=== PATIENT | female | born 1980 | race Caucasian/White ===

== ENCOUNTER 2018-07-15 10:21 | Outpatient (CLI) | payer OTHER | END 2018-07-15 10:22 | disposition critical access hospital (66) | LOC: EMS 10:21 | PROVIDERS: ATTEND Surgery | DX: R42 Dizziness and giddiness (principal); R11.0 Nausea; M54.2 Cervicalgia | CPT/HCPCS: A0425; A0429 ==

== ENCOUNTER 2018-07-15 10:42 | Emergency (ER) | payer OTHER ==
--- NOTE | 2018-07-15 12:18 | ED Physician Documentation ---
PD HPI SYNCOPE - Stated complaint Stated Complaint: NEAR SYNCOPE - Chief complaint Chief Complaint: Back Pain - History obtained from History obtained from: Patient - History of Present Illness Witnessed: Witnessed Timing - onset: Yesterday (had some feeling of muscle pain and tightness last evening and worse with awakening this morning. Pain right medial scapular area. It worsened with reaching for her daughter and lifting her up. With the pain worse, she felt lightheaded, then got nauseated and vomited once. She feels that she almost fainted, with general weakness. This lasted minute or two, and then started recovering. But still with scapular area pain, sharp and movement related.) Duration: Minutes Preceding symptoms: Chest pain, Generalized weakness, Other. No: Vision changes , Dyspnea, Abdominal pain Associated symptoms: No: Seizure Review of Systems Constitutional: denies: Fever, Chills, Myalgias Nose: denies: Rhinorrhea / runny nose, Congestion Throat: denies: Sore throat Cardiac: reports: Chest pain / pressure. denies: Palpitations, Pedal edema, Calf pain Respiratory: denies: Dyspnea, Cough GI: reports: Abdominal Pain, Nausea. denies: Vomiting, Diarrhea : denies: Dysuria, Frequency Skin: denies: Rash, Lesions Musculoskeletal: reports: Back pain, Other (recent travel by plane last week without leg problems.). denies: Neck pain, Extremity swelling Neurologic: reports: Focal weakness, Near syncope. denies: Generalized weakness , Numbness, Altered mental status, Headache Endocrine: denies: Weight loss, Swollen lymph nodes Immunocompromised: denies: Immunocompromised PD PAST MEDICAL HISTORY - Past Medical History Past Medical History: No Cardiovascular: None Respiratory: None Neuro: None - Past Surgical History Past Surgical History: No - Present Medications Home Medications: Ambulatory Orders Medication Instructions Recorded Confirmed HYDROcod/ACETAM 5/325 [[place] 5/325] 1 tab PO Q6H PRN #15 tablet 07/15/18 Methocarbamol [Robaxin] 500 mg PO Q6H PRN #25 tablet 07/15/18 Ondansetron Odt [Zofran] 4 mg TL Q6H PRN #15 tablet 07/15/18 - Allergies Allergies/Adverse Reactions: Allergies Allergy/AdvReac Type Severity Reaction Status Date / Time No Known Drug Allergies Allergy Verified 07/15/18 10:53 - Living Situation Living Situation: reports: With spouse/s.o. Living Arrangement: reports: At home - Social History Does the pt smoke?: No Smoking Status: Never smoker Does the pt drink ETOH?: No - Family History Family history: denies: Aortic aneursym, Aortic dissection - Immunizations Immunizations are current?: Yes - POLST Patient has POLST: No PD ED PE NORMAL - Vitals Vital signs reviewed: Yes - General General: Alert and oriented X 3, No acute distress, Well developed/nourished - HEENT HEENT: Atraumatic, Ears normal, Pharynx benign. No: Moist mucous membranes - Neck Neck: Supple, no meningeal sign, No adenopathy - Cardiac Cardiac: RRR, No murmur - Respiratory Respiratory: No respiratory distress, Clear bilaterally - Abdomen Abdomen: Normal bowel sounds, Soft, Non tender - Female Female : Pt declined - Rectal Rectal: Deferred - Back Back: No CVA TTP, No spinal TTP, Other (muscular tenderness without redness, sores, rash at medial scapular area on right. ) - Derm Derm: Normal color, Warm and dry - Extremities Extremities: No deformity, No tenderness to palpate, Normal ROM s pain, No edema , No calf tenderness / cord - Neuro Neuro: Alert and oriented X 3, No motor deficit, Normal speech Eye Opening: Spontaneous Motor: Obeys Commands Verbal: Oriented GCS Score: 15 Results - Vitals Vitals: Vital Signs - 24 hr 07/15/18 07/15/18 07/15/18 10:49 12:21 14:45 Temperature 97.7 C H Heart Rate 67 68 69 Respiratory 20 16 16 Rate Blood Pressure 105/68 100/62 104/67 O2 Saturation 100 100 97 Oxygen O2 Source Room air - EKG (time done) 12:13 Rate: Rate (enter#) (60) Rhythm: NSR Tatamy: Normal Intervals: Normal CA QRS: Normal Ischemia: Normal ST segments. No: ST elevation c/w ischemia, ST depression Compare to prior EKG: Old EKG unavailable - Labs Labs: Laboratory Tests 07/15/18 07/15/18 07/15/18 12:10 12:20 12:20 WBC 12.8 H RBC 4.49 Hgb 15.0 Hct 43.0 MCV 95.8 MCH 33.4 H MCHC 34.9 RDW 13.1 Plt Count 285 MPV 7.7 L Neut # (Auto) 10.6 H Lymph # (Auto) 1.3 L [place] # (Auto) 0.8 Eos # (Auto) 0.0 Baso # (Auto) 0.1 Absolute Nucleated RBC 0.00 Nucleated RBC % 0.0 D-Dimer Sodium 138 Potassium 3.5 Chloride 103 Carbon Dioxide 26 Anion Gap 9.0 BUN 11 Creatinine 0.6 Estimated GFR (MDRD) 112 Glucose 93 Calcium 9.4 Total Bilirubin 1.1 H AST 21 ALT 16 Alkaline Phosphatase 48 Troponin I Total Protein 7.4 Albumin 4.4 Globulin 3.0 Albumin/Globulin Ratio 1.5 Lipase 28 Urine Color YELLOW Urine Clarity CLEAR Urine pH 8.5 H Ur Specific [place] 1.015 Urine Protein NEGATIVE Urine Glucose (UA) NEGATIVE Urine Ketones 15 H Urine Occult Blood NEGATIVE Urine Nitrite NEGATIVE Urine Bilirubin NEGATIVE Urine Urobilinogen 0.2 (NORMAL) Ur Leukocyte Esterase NEGATIVE Ur Microscopic Review NOT INDICATED Urine Culture Comments NOT INDICATED Urine HCG, Qual NEGATIVE 07/15/18 07/15/18 12:20 12:20 WBC RBC Hgb Hct MCV MCH MCHC RDW Plt Count MPV Neut # (Auto) Lymph # (Auto) [place] # (Auto) Eos # (Auto) Baso # (Auto) Absolute Nucleated RBC Nucleated RBC % D-Dimer < 200.0 L Sodium Potassium Chloride Carbon Dioxide Anion Gap BUN Creatinine Estimated GFR (MDRD) Glucose Calcium Total Bilirubin AST ALT Alkaline Phosphatase Troponin I < 0.04 Total Protein Albumin Globulin Albumin/Globulin Ratio Lipase Urine Color Urine Clarity Urine pH Ur Specific [place] Urine Protein Urine Glucose (UA) Urine Ketones Urine Occult Blood Urine Nitrite Urine Bilirubin Urine Urobilinogen Ur Leukocyte Esterase Ur Microscopic Review Urine Culture Comments Urine HCG, Qual - Rads (name of study) chest xray Radiology: Prelim report reviewed PD MEDICAL DECISION MAKING - ED course Complexity details: reviewed results (Chest xray is clear, ECG is normal. Labs are good with normal troponin and d-dimer (so not seeming PE nor dissection). Back pain does seem muscular. Presume the lightheaded and nausea was vasovagal and she is feeling okay with that regard here. ), considered differential (back pain seems muscular but concern with concomitant lightheaded and near syncope. Will check for vascular, lung, cardiac causes as well as metabolic and sugar. ) , d/w patient - Sepsis Event Vital Signs: Vital Signs - 24 hr 07/15/18 07/15/18 07/15/18 10:49 12:21 14:45 Temperature 97.7 C H Heart Rate 67 68 69 Respiratory 20 16 16 Rate Blood Pressure 105/68 100/62 104/67 O2 Saturation 100 100 97 Oxygen O2 Source Room air Departure - Departure Disposition: 01 Home, Self Care Clinical Impression: Strain of muscle and tendon of back wall of thorax, initial encounter, Near syncope Condition: Stable Record reviewed to determine appropriate education?: Yes Instructions: ED Near Syncope Vasovagal, ED Sprain Thoracic Spine Prescriptions: HYDROcod/ACETAM 5/325 [[place] 5/325] 1 tab PO Q6H PRN #15 tablet PRN Reason: Pain Methocarbamol [Robaxin] 500 mg PO Q6H PRN #25 tablet PRN Reason: Spasms Ondansetron Odt [Zofran] 4 mg TL Q6H PRN #15 tablet PRN Reason: Nausea / Vomiting Comments: Drink lots of fluids. Heat and gentle stretching for the back muscles. Naproxen or ibuprofen 2-3 times a day for the next 5 or 6 days. To that add Tylenol if needed for pains. Use methocarbamol muscle relaxant if needed for spasms and add hydrocodone if needed for worse pain. This seems like muscular back pain in the scapular area. The near fainting episode you had does not have any apparent serious cause based on testing for your heart and lungs and vascular system. I presume it was a vasovagal episode. Recheck if other symptoms develop or not improved over the next few days. Discharge Date/Time: 07/15/18 14:46
[2018-07-15 12:25] LABS: BASOPHILS # (AUTO) 0.1 10^3/uL (0.0-0.1); BASOPHILS % (AUTO) 0.5 %; EOSINOPHILS % (AUTO) 0.2 %; LYMPHOCYTES # (AUTO) 1.3 10^3/uL (1.5-3.5); LYMPHOCYTES % (AUTO) 10.2 %; MEAN CORPUSCULAR HEMOGLOBIN 33.4 pg (27.0-31.0); MEAN CORPUSCULAR HGB CONC 34.9 g/dL (32.0-36.0); MEAN CORPUSCULAR VOLUME 95.8 fL (81.0-99.0); MEAN PLATELET VOLUME 7.7 fL (7.9-10.8); MONOCYTES # (AUTO) 0.8 10^3/uL (0.0-1.0); MONOCYTES % (AUTO) 6.5 %; NEUTROPHILS # (AUTO) 10.6 10^3/uL (1.5-6.6); NEUTROPHILS % (AUTO) 82.6 %; PLT - PLATELET COUNT 285 10^3/uL (130-450); RED BLOOD COUNT 4.49 10^6/uL (4.20-5.40); RED CELL DISTRIBUTION WIDTH 13.1 % (12.0-15.0); WHITE BLOOD COUNT 12.8 x10^3/uL (4.8-10.8)
[2018-07-15] MEDS ORDERED: MORPHINE 10 MG/ML VIAL IVP STA (12:43)
[2018-07-15] MEDS ORDERED: ONDANSETRON 4 MG/2 ML VIAL IVP STA (12:43)
[2018-07-15] MEDS ORDERED: KETOROLAC 60 MG/2 ML VIAL IVP STA (12:43)
[2018-07-15] MEDS ORDERED: SODIUM CHLORIDE 0.9% 1,000 ML IV ONE (12:44)
[2018-07-15 13:09] LABS: BILIRUBIN,URINE NEGATIVE (NEGATIVE); GLUCOSE, URINE (UA) NEGATIVE (NEGATIVE); KETONES,URINE (UA) 15 mg/dL (NEGATIVE); LEUKOCYTE ESTERASE, URINE NEGATIVE (NEGATIVE); NITRITE,URINE NEGATIVE (NEGATIVE); OCCULT BLOOD,URINE NEGATIVE (NEGATIVE); PH,URINE 8.5 PH (5.0-7.5); PROTEIN,URINE NEGATIVE (NEGATIVE); UROBILINOGEN,URINE 0.2 (NORMAL) E.U./dL (NORMAL)
[2018-07-15 13:11] LABS: CLARITY,URINE CLEAR (CLEAR)
[2018-07-15 13:18] LABS: ALBUMIN 4.4 g/dL (3.2-5.5); ALBUMIN/GLOBULIN RATIO 1.5 (1.0-2.2); BILIRUBIN,TOTAL 1.1 mg/dL (0.2-1.0); CALCIUM 9.4 mg/dL (8.5-10.3); CREATININE 0.6 mg/dL (0.4-1.0); TOTAL PROTEIN 7.4 g/dL (6.7-8.2)
[2018-07-15 13:19] LABS: HCG UR QUAL NEGATIVE
--- NOTE | 2018-07-15 13:20 | XRAY Report ---
Procedure Date: 07/15/2018 Accession Number: [id number] / [id number] Procedure: XR - Chest 1 View X-Ray CPT Code: 12301 FULL RESULT: EXAM: CHEST RADIOGRAPHY EXAM DATE: 07/15/2018 01:14 PM. CLINICAL HISTORY: Chest/back pain. COMPARISON: None. TECHNIQUE: 1 view. FINDINGS: Lungs/Pleura: Clear. No effusion or pneumothorax. Mediastinum: Within exam limitations, the cardiomediastinal contour is normal. Upper lobe vessels not distended. Other: None. IMPRESSION: Normal single view chest. [facility]
[2018-07-15 14:46] VITALS: BP 104/67
== END 2018-07-15 14:46 | disposition home or self-care (01) ==
LOC: ED 10:42
DX: S29.012A Strain of muscle and tendon of back wall of thorax, initial encounter (principal); R55 Syncope and collapse
CPT/HCPCS: 36415; 71045; 80053; 81001; 81003; 81025; 83690; 84484; 85025; 85379; 87086; 93005; 96361; 96374; 96375; 99283; 99284